=== PATIENT | female | born 1950 | race Caucasian/White ===

== ENCOUNTER 2021-05-24 22:42 | Emergency (ER) | payer BC ==
[2021-05-24 23:29] LABS: HEMOGLOBIN 12.3 gm/dl (12.3-15.3); RED BLOOD COUNT 4.03 M/UL (4.00-5.10); WHITE BLOOD COUNT 12.9 K/UL (4.5-11.0)
[2021-05-24 23:51] LABS: BUN/CREATININE RATIO 30 (0-10)
== END 2021-05-25 04:26 | disposition home or self-care (01) ==
LOC: ER1 22:42
PROVIDERS: Student in an Organized Health Care Education/Training Program
DX: C78.7 Secondary malignant neoplasm of liver and intrahepatic bile duct (principal); E87.1 Hypo-osmolality and hyponatremia; I10 Essential (primary) hypertension; Z20.822 Contact with and (suspected) exposure to COVID-19
CPT/HCPCS: 51701; 80053; 81001; 82550; 82553; 84484; 85025; 93005; 99285; Q9967; U0002